=== PATIENT | female | born 1985 | race Caucasian/White ===

== ENCOUNTER 2018-06-05 10:33 | Inpatient (IN) | payer BC ==
[2018-06-05] MEDS ORDERED: Ondansetron 4 MG/2 ML SDV IVPUSH PRN (12:05)
[2018-06-05] MEDS ORDERED: Nalbuphine 20 MG/ML 1 ML Syringe IVPUSH PRN (12:05)
[2018-06-05] MEDS ORDERED: Sodium Chloride 0.9% 10 ML Syringe FLUSH PRN (12:05)
--- NOTE | 2018-06-05 12:05 | PCM.LDHP ---
L&D History of Present Illness - General Date of Service: 06/05/18 Admit Problem/Dx: Admission Diagnosis/Problem Admission Diagnosis/Problem Source of Information: Patient History Limitations: Reports: No Limitations - History of Present Illness Introduction:: Patient is a 32 y/o at 40 3/7 wks who presents in labor. Contractions stared a few hours ago. No LOF or VB. - Related Data Allergies/Adverse Reactions: Allergies Allergy/AdvReac Type Severity Reaction Status Date / Time No Known Allergies Allergy Verified 06/05/18 12:26 Home Medications: Home Meds Prenat Vit Comb.10/Iron/Fa/Dha [Vitafol-OB + DHA] 1 each PO DAILY 06/05/18 [ History] Past Medical History [employer] History: Reports: : 2 Para: 0 LMP (Approximate): Psychiatric History: Reports: Anxiety - Past Surgical History HEENT Surgical History: Reports: Oral Surgery ([place] tooth extraction) Female Surgical History: Reports: Other (See Below) (Breast lumpectomy) Social & Family History - Tobacco Use Smoking Status *Q: Never Smoker - Alcohol Use Alcohol Use History: No - Recreational Drug Use Recreational Drug Use: No Drug Use in Last 12 Months: No H&P Review of Systems - Review of Systems: Review Of Systems: See Below General: Reports: No Symptoms Pulmonary: Reports: No Symptoms Cardiovascular: Reports: No Symptoms Gastrointestinal: Reports: No Symptoms Genitourinary: Reports: No Symptoms Musculoskeletal: Reports: No Symptoms Psychiatric: Reports: No Symptoms Neurological: Reports: No Symptoms L&D Exam - Exam Exam: See Below - OB Specific Contraction Intensity: Moderate to Strong Movement: Active Heart Tones: Present Heart Tones per Min: 140 Heart Rate (FHR) Variability: Moderate (6-25 bmp) Presentation: Vertex - Patterson Score Patterson Score Cervix Position: Anterior Patterson Score Consistency: Soft Patterson Score Effacement: >80% Patterson Score Dilation: > 5 cm Patterson Score Infant's Station: -1 ,0 Patterson Score Total: 12 - Exam General: Alert, Oriented, Cooperative Lungs: Clear to Auscultation, Normal Respiratory Effort Cardiovascular: Regular Rate, Regular Rhythm GI/Abdominal Exam: Soft, Non-Tender Genitourinary: Normal external exam Extremities: Normal Inspection Skin: Warm, Dry, Intact - Patient Data Result Diagrams: 06/05/18 12:13 - Problem List (1) 40 weeks gestation of SNOMED Code(s): 12720873 ICD Code: Z3A.40 - 40 WEEKS GESTATION OF Status: Acute Current Visit: Yes (2) Normal labor SNOMED Code(s): 26667539 ICD Code: O80 - ENCOUNTER FOR FULL-TERM UNCOMPLICATED DELIVERY; Z37.9 - OUTCOME OF DELIVERY, UNSPECIFIED Status: Acute Current Visit: Yes Problem List Initiated/Reviewed/Updated: Yes Assessment/Plan Comment:: 32 y/o at 40 3/7 wks who presents in labor * Labs on admission * GBS negative, no need for antibiotics * Desires Epidural * Anticipate
[2018-06-05] MEDS ORDERED: Oxytocin/Lactated Ringers 10 UNIT/1,000 ML BAG IV SCH (12:15)
[2018-06-05] MEDS ORDERED: diphenhydrAMINE 50 MG/ML SDV IVPUSH PRN (12:18)
[2018-06-05] MEDS ORDERED: ePHEDrine 50 MG/ML SDV IVPUSH PRN (12:18)
[2018-06-05] MEDS ORDERED: fentaNYL 100 MCG/2 ML SDV EPIDUR PRN (12:18)
[2018-06-05] MEDS: Lactated Ringers 1,000 ML IV SCH ×3 (12:21→13:39)
[2018-06-05] MEDS ORDERED: Bupivacaine/fentaNYL/NS 100 ML Bag EPIDUR SCH (12:30)
--- NOTE | 2018-06-05 12:51 | PCM.PREANE ---
Preanesthetic Assessment - Procedure Proposed Procedure: maura - Anesthesia/Transfusion/Family Hx Anesthesia History: Prior Anesthesia Without Reaction Family History of Anesthesia Reaction: No Transfusion History: No Prior Transfusion(s) - Review of Systems General: No Symptoms, Other (undiagnosed hypoglycemia) Pulmonary: No Symptoms Cardiovascular: No Symptoms Gastrointestinal: No Symptoms Neurological: No Symptoms Other: Reports: None - Physical Assessment Pulse: 93 O2 Sat by Pulse Oximetry: 100 Respiratory Rate: 20 Blood Pressure: 118/58 Height: 5 ft 7 in Weight: 109.769 kg ASA Class: 2 Mental Status: Alert & Oriented x3 Airway Class: Mallampati = 1 Dentition: Reports: Normal Dentition Thyro-Mental Finger Breadths: 3 ROM/Head Extension: Full Lungs: Clear to Auscultation, Normal Respiratory Effort Cardiovascular: Regular Rate, Regular Rhythm - Lab Values: Laboratory Last Values WBC 12.52 K/mm3 (3.98-10.04) H 06/05/18 12:13 RBC 4.51 M/mm3 (3.98-5.22) 06/05/18 12:13 Hgb 12.8 gm/L (11.2-15.7) 06/05/18 12:13 Hct 38.2 % (34.1-44.9) 06/05/18 12:13 MCV 84.7 fl (79.4-94.8) 06/05/18 12:13 MCH 28.4 pg (25.6-32.2) 06/05/18 12:13 MCHC 33.5 g/dl (32.2-35.5) 06/05/18 12:13 RDW Std Deviation 43.9 fL (36.4-46.3) 06/05/18 12:13 Plt Count 157 K/mm3 (182-369) L 06/05/18 12:13 MPV 11.2 fl (9.4-12.3) 06/05/18 12:13 - Allergies Allergies/Adverse Reactions: Allergies Allergy/AdvReac Type Severity Reaction Status Date / Time No Known Allergies Allergy Verified 06/05/18 12:26 - Blood Blood Available: No - Acknowledgements Anesthesia Type Planned: Epidural Pt an Appropriate Candidate for the Planned Anesthesia: Yes Alternatives and Risks of Anesthesia Discussed w Pt/Guardian: Yes Pt/Guardian Understands and Agrees with Anesthesia Plan: Yes PreAnesthesia Questionnaire HEENT History: Reports: Impaired Vision Cardiovascular History: Reports: None Respiratory History: Reports: None Gastrointestinal History: Reports: None : 1 (40 weeks plus 3) Para: 0 Endocrine/Metabolic History: Reports: Other (See Below) (undiagnosed hypoglycemia) - Past Surgical History HEENT Surgical History: Reports: Tonsillectomy Female Surgical History: Reports: Breast Biopsy - SUBSTANCE USE Smoking Status *Q: Never Smoker Tobacco Use Within Last Twelve Months: No Second Hand Smoke Exposure: Yes Days Per Week of Alcohol Use: 0 Recreational Drug Use History: No - HOME MEDS Home Medications: Home Meds Prenat Vit Comb.10/Iron/Fa/Dha [Vitafol-OB + DHA] 1 each PO DAILY 06/05/18 [ History] - CURRENT (IN HOUSE) MEDS Current Meds: Current Medications Diphenhydramine HCl (Benadryl) 25 mg IVPUSH Q6H PRN PRN Reason: pruritis Ephedrine Sulfate (Ephedrine Sulfate) 5 mg IVPUSH ASDIRECTED PRN PRN Reason: Hypotension Fentanyl (Sublimaze) 100 mcg EPIDUR Q3H PRN PRN Reason: Pain Last Admin: 06/05/18 12:45 Dose: 100 mcg Fentanyl/Bupivacaine HCl (Fentanyl/Bupivacaine/Ns 2 Mcg-0.125% 100 Ml) 100 ml EPIDUR ASDIRECTED JT Last Admin: 06/05/18 12:45 Dose: 100 ml Lactated Ringer's (Ringers, Lactated) 1,000 mls @ 100 mls/hr IV ASDIRECTED JT Last Admin: 06/05/18 12:21 Dose: 100 mls/hr Oxytocin/Lactated Ringer's (Pitocin In Lr 10 Units/1,000 Ml) 10 unit in 1,000 mls @ 500 mls/hr IV .CONTINUOUS JT Nalbuphine HCl (Nubain) 10 mg IVPUSH Q2H PRN PRN Reason: pain Ondansetron HCl (Zofran) 4 mg IVPUSH Q4H PRN PRN Reason: Nausea/Vomiting Sodium Chloride (Saline Flush) 10 ml FLUSH ASDIRECTED PRN PRN Reason: Keep Vein Open
[2018-06-05] MEDS ORDERED: Bupivacaine 0.25% 10 ML SDV ONE (18:00)
--- NOTE | 2018-06-05 20:38 | PCM.PNPP ---
- General Info Date of Service: 06/05/18 - Patient Data Vital Signs - Most Recent: Last Vital Signs Temp 36.6 C 06/05/18 14:00 Pulse 83 06/05/18 14:30 Resp 16 06/05/18 14:00 BP 114/80 06/05/18 14:30 Pulse Ox 100 06/05/18 12:51 Weight - Most Recent: 109.769 kg I&O - Last 24 Hours: Intake & Output 06/05/18 06/05/18 06/05/18 06:59 14:59 22:59 Intake Total 1999 Balance 1999 Lab Results - Last 24 Hours: Laboratory Results - last 24 hr 06/05/18 06/05/18 06/05/18 Range/Units 12:13 12:13 12:13 WBC 12.52 H (3.98-10.04) K/mm3 RBC 4.51 (3.98-5.22) M/mm3 Hgb 12.8 (11.2-15.7) gm/L Hct 38.2 (34.1-44.9) % MCV 84.7 (79.4-94.8) fl MCH 28.4 (25.6-32.2) pg MCHC 33.5 (32.2-35.5) g/dl RDW Std Deviation 43.9 (36.4-46.3) fL Plt Count 157 L (182-369) K/mm3 MPV 11.2 (9.4-12.3) fl RPR Non-reactive (NONREACTIVE) Blood Type A POSITIVE Gel Antibody Screen Negative Med Orders - Current: Current Medications Diphenhydramine HCl (Benadryl) 25 mg IVPUSH Q6H PRN PRN Reason: pruritis Ephedrine Sulfate (Ephedrine Sulfate) 5 mg IVPUSH ASDIRECTED PRN PRN Reason: Hypotension Fentanyl (Sublimaze) 100 mcg EPIDUR Q3H PRN PRN Reason: Pain Last Admin: 06/05/18 12:45 Dose: 100 mcg Fentanyl/Bupivacaine HCl (Fentanyl/Bupivacaine/Ns 2 Mcg-0.125% 100 Ml) 100 ml EPIDUR ASDIRECTED JT Last Admin: 06/05/18 12:45 Dose: 100 ml Lactated Ringer's (Ringers, Lactated) 1,000 mls @ 100 mls/hr IV ASDIRECTED JT Last Admin: 10/03/18 13:39 Dose: 100 mls/hr Oxytocin/Lactated Ringer's (Pitocin In Lr 10 Units/1,000 Ml) 10 unit in 1,000 mls @ 500 mls/hr IV .CONTINUOUS JT Nalbuphine HCl (Nubain) 10 mg IVPUSH Q2H PRN PRN Reason: pain Ondansetron HCl (Zofran) 4 mg IVPUSH Q4H PRN PRN Reason: Nausea/Vomiting Last Admin: 06/05/18 18:02 Dose: 4 mg Sodium Chloride (Saline Flush) 10 ml FLUSH ASDIRECTED PRN PRN Reason: Keep Vein Open - Interaction Support Person: - Problem List & Annotations (1) 40 weeks gestation of SNOMED Code(s): 96957188 Code(s): Z3A.40 - 40 WEEKS GESTATION OF Status: Acute Current Visit: Yes (2) Normal labor SNOMED Code(s): 14426120 Code(s): O80 - ENCOUNTER FOR FULL-TERM UNCOMPLICATED DELIVERY; Z37.9 - OUTCOME OF DELIVERY, UNSPECIFIED Status: Acute Current Visit: Yes - My Orders Last 24 Hours: My Active Orders 06/05/18 12:05 Patient Status [ADT] Routine Activity as Tolerated [RC] PFP Communication Order [RC] ASDIRECTED Notify Provider [RC] PFP Notify Provider [RC] PRN Vital Signs [RC] PER UNIT ROUTINE Nalbuphine [Nubain] 10 mg IVPUSH Q2H PRN Ondansetron [Zofran] 4 mg IVPUSH Q4H PRN Sodium Chloride 0.9% [Saline Flush] 10 ml FLUSH ASDIRECTED PRN Electronic Heart Tones Ext w TOCO [WOMSER] Routine Electronic Heart Tones Internal [WOMSER] Per Unit Routine Peripheral IV Insertion Adult [OM.PC] Routine Resuscitation Status Routine 06/05/18 12:06 Heart Tones [RC] ASDIRECTED Peripheral IV Care [RC] . DIRECTED 06/05/18 12:15 Lactated Ringers [Ringers, Lactated] 1,000 ml IV ASDIRECTED Oxytocin/Lactated Ringers [Pitocin in LR 10 Units/1,000 ML] 10 unit in 1,000 ml IV .CONTINUOUS 06/05/18 14:48 Urinary Catheter Assessment [RC] ASDIRECTED 06/05/18 15:00 Wu Catheter Insertion [Insert Urinary Catheter] [OM.PC] Q24H 06/05/18 Lunch Regular Diet [DIET] - Plan Plan:: 32 y/o at 40 3/7 wks who presents in labor * Labs on admission * GBS negative, no need for antibiotics * Desires Epidural * Anticipate
--- NOTE | 2018-06-05 20:48 | PCM.DEL ---
L & D Note - General Info Date of Service: 06/05/18 - Delivery Note Labor: Spontaneous Delivery Outcome: Livebirth Delivery Method: Spontaneous Vaginal Delivery-Single Delivery Mode: Spontaneous Presentation: Right Occiput Anterior (CARON) Nuchal Cord: None Anesthesia Type: Epidural Amniotic Fluid Description: Clear Episiotomy Type: None Laceration: 2nd Degree, Perineal Suture type: Vicryl Suture size: 2-0 Placenta: Intact, Spontaneous Cord: 3 Vessels Estimated Blood Loss: 300 Resuscitation Needed: Yes : Bulb Syringe, Stimulated, Warmed, Ramona Used, Warmer Used Delivery Comments (Free Text/Narrative):: Patient found to be complete and began pushing. With maternal pushing effort head delivered from an CARON presentation. No nuchal cord present. With gentle downward traction the shoulders and body delivered. placed on maternal abdomen. Cord clamped and cut. Cord blood collected. Placenta allowed time to separate and expelled intact. Inspection of the perineum showed a 2nd degree laceration repaired with 2-0 vicryl in the typical fashion - General Info Date of Service: 06/05/18 - Patient Data Vitals - Most Recent: Last Vital Signs Temp 36.6 C 06/05/18 14:00 Pulse 83 06/05/18 14:30 Resp 16 06/05/18 14:00 BP 114/80 06/05/18 14:30 Pulse Ox 100 06/05/18 12:51 Weight - Most Recent: 109.769 kg I&O - Last 24 Hours: Intake & Output 06/05/18 06/05/18 06/05/18 06:59 14:59 22:59 Intake Total 1999 Balance 1999 Lab Results Last 24 Hours: Laboratory Results - last 24 hr 06/05/18 06/05/18 06/05/18 Range/Units 12:13 12:13 12:13 WBC 12.52 H (3.98-10.04) K/mm3 RBC 4.51 (3.98-5.22) M/mm3 Hgb 12.8 (11.2-15.7) gm/L Hct 38.2 (34.1-44.9) % MCV 84.7 (79.4-94.8) fl MCH 28.4 (25.6-32.2) pg MCHC 33.5 (32.2-35.5) g/dl RDW Std Deviation 43.9 (36.4-46.3) fL Plt Count 157 L (182-369) K/mm3 MPV 11.2 (9.4-12.3) fl RPR Non-reactive (NONREACTIVE) Blood Type A POSITIVE Gel Antibody Screen Negative Med Orders - Current: Current Medications Diphenhydramine HCl (Benadryl) 25 mg IVPUSH Q6H PRN PRN Reason: pruritis Ephedrine Sulfate (Ephedrine Sulfate) 5 mg IVPUSH ASDIRECTED PRN PRN Reason: Hypotension Fentanyl (Sublimaze) 100 mcg EPIDUR Q3H PRN PRN Reason: Pain Last Admin: 06/05/18 12:45 Dose: 100 mcg Fentanyl/Bupivacaine HCl (Fentanyl/Bupivacaine/Ns 2 Mcg-0.125% 100 Ml) 100 ml EPIDUR ASDIRECTED JT Last Admin: 06/05/18 12:45 Dose: 100 ml Lactated Ringer's (Ringers, Lactated) 1,000 mls @ 100 mls/hr IV ASDIRECTED JT Last Admin: 06/05/18 13:39 Dose: 100 mls/hr Oxytocin/Lactated Ringer's (Pitocin In Lr 10 Units/1,000 Ml) 10 unit in 1,000 mls @ 500 mls/hr IV .CONTINUOUS JT Nalbuphine HCl (Nubain) 10 mg IVPUSH Q2H PRN PRN Reason: pain Ondansetron HCl (Zofran) 4 mg IVPUSH Q4H PRN PRN Reason: Nausea/Vomiting Last Admin: 06/05/18 18:02 Dose: 4 mg Sodium Chloride (Saline Flush) 10 ml FLUSH ASDIRECTED PRN PRN Reason: Keep Vein Open - Problem List & Annotations (1) 40 weeks gestation of SNOMED Code(s): 98897065 Code(s): Z3A.40 - 40 WEEKS GESTATION OF Status: Acute Current Visit: Yes (2) Normal labor SNOMED Code(s): 14671939 Code(s): O80 - ENCOUNTER FOR FULL-TERM UNCOMPLICATED DELIVERY; Z37.9 - OUTCOME OF DELIVERY, UNSPECIFIED Status: Acute Current Visit: Yes (3) Vaginal delivery SNOMED Code(s): 108078722 Code(s): O80 - ENCOUNTER FOR FULL-TERM UNCOMPLICATED DELIVERY Status: Acute Current Visit: Yes - Problem List Review Problem List Initiated/Reviewed/Updated: Yes - My Orders Last 24 Hours: My Active Orders 06/05/18 12:05 Patient Status [ADT] Routine Activity as Tolerated [RC] PFP Communication Order [RC] ASDIRECTED Notify Provider [RC] PFP Notify Provider [RC] PRN Vital Signs [RC] PER UNIT ROUTINE Nalbuphine [Nubain] 10 mg IVPUSH Q2H PRN Ondansetron [Zofran] 4 mg IVPUSH Q4H PRN Sodium Chloride 0.9% [Saline Flush] 10 ml FLUSH ASDIRECTED PRN Electronic Heart Tones Ext w TOCO [WOMSER] Routine Electronic Heart Tones Internal [WOMSER] Per Unit Routine Peripheral IV Insertion Adult [OM.PC] Routine Resuscitation Status Routine 06/05/18 12:06 Heart Tones [RC] ASDIRECTED Peripheral IV Care [RC] . DIRECTED 06/05/18 12:15 Lactated Ringers [Ringers, Lactated] 1,000 ml IV ASDIRECTED Oxytocin/Lactated Ringers [Pitocin in LR 10 Units/1,000 ML] 10 unit in 1,000 ml IV .CONTINUOUS 06/05/18 14:48 Urinary Catheter Assessment [RC] ASDIRECTED 06/05/18 15:00 Wu Catheter Insertion [Insert Urinary Catheter] [OM.PC] Q24H 06/05/18 20:46 Patient Status Manage Transfer [TRANSFER] Routine 06/05/18 Lunch Regular Diet [DIET] - Assessment Assessment:: 32 y/o PPD#0 from - Plan Plan:: * Routine cares * Encourage breast feeding * Discharge home in 2 days
[2018-06-05] MEDS ORDERED: Witch Hazel Medicated Pads 100/Jar TOP PRN (20:49)
[2018-06-05] MEDS ORDERED: Acetaminophen 325 MG Tab PO PRN (20:49)
[2018-06-05] MEDS ORDERED: Benzocaine/Menthol 20%-0.5% Spray 56 GM Canister TOP PRN (20:49)
[2018-06-05] MEDS ORDERED: Docusate Sodium 100 MG Cap PO PRN (20:49)
[2018-06-05] MEDS ORDERED: Lanolin 100% Cream 7 GM Tube TOP PRN (20:49)
[2018-06-05] MEDS: Ibuprofen 600 MG Tab PO PRN (21:33)
[2018-06-06] MEDS: Ibuprofen 600 MG Tab PO PRN ×2 (04:20→18:52)
--- NOTE | 2018-06-06 06:28 | PCM.PNPP ---
- General Info Date of Service: 06/06/18 Functional Status: Reports: Pain Controlled, Tolerating Diet, Ambulating, Urinating - Review of Systems General: Reports: No Symptoms Pulmonary: Reports: No Symptoms Cardiovascular: Reports: No Symptoms Gastrointestinal: Reports: No Symptoms Genitourinary: Reports: No Symptoms Musculoskeletal: Reports: No Symptoms Neurological: Reports: No Symptoms - Patient Data Vital Signs - Most Recent: Last Vital Signs Temp 36.6 C 06/06/18 03:00 Pulse 73 06/06/18 03:00 Resp 18 06/06/18 03:00 BP 105/60 06/06/18 03:00 Pulse Ox 99 06/06/18 03:00 Weight - Most Recent: 109.769 kg I&O - Last 24 Hours: Intake & Output 06/05/18 06/05/18 06/06/18 14:59 22:59 06:59 Intake Total 6000 Balance 6000 Lab Results - Last 24 Hours: Laboratory Results - last 24 hr 06/05/18 06/05/18 06/05/18 Range/Units 12:13 12:13 12:13 WBC 12.52 H (3.98-10.04) K/mm3 RBC 4.51 (3.98-5.22) M/mm3 Hgb 12.8 (11.2-15.7) gm/L Hct 38.2 (34.1-44.9) % MCV 84.7 (79.4-94.8) fl MCH 28.4 (25.6-32.2) pg MCHC 33.5 (32.2-35.5) g/dl RDW Std Deviation 43.9 (36.4-46.3) fL Plt Count 157 L (182-369) K/mm3 MPV 11.2 (9.4-12.3) fl RPR Non-reactive (NONREACTIVE) Blood Type A POSITIVE Gel Antibody Screen Negative Med Orders - Current: Current Medications Acetaminophen (Tylenol) 650 mg PO Q4H PRN PRN Reason: mild pain or fever Benzocaine/Menthol (Dermoplast Pain Relief [place]) 0 gm TOP ASDIRECTED PRN PRN Reason: Perineal Comfort Measure Last Admin: 06/05/18 21:35 Dose: 1 canister Docusate Sodium (Colace) 100 mg PO BID PRN PRN Reason: Constipation Last Admin: 06/06/18 04:27 Dose: 100 mg Emollient Ointment (Lansinoh Hpa) 0 gm TOP ASDIRECTED PRN PRN Reason: Sore Nipples Ibuprofen (Motrin) 600 mg PO Q6H PRN PRN Reason: Mild pain or fever Last Admin: 06/06/18 04:20 Dose: 600 mg Witch Pam (Tucks) 1 pad TOP ASDIRECTED PRN PRN Reason: Hemorrhoid pain Last Admin: 06/05/18 21:35 Dose: 1 tub Discontinued Medications Diphenhydramine HCl (Benadryl) 25 mg IVPUSH Q6H PRN PRN Reason: pruritis Ephedrine Sulfate (Ephedrine Sulfate) 5 mg IVPUSH ASDIRECTED PRN PRN Reason: Hypotension Fentanyl (Sublimaze) 100 mcg EPIDUR Q3H PRN PRN Reason: Pain Last Admin: 06/05/18 12:45 Dose: 100 mcg Fentanyl/Bupivacaine HCl (Fentanyl/Bupivacaine/Ns 2 Mcg-0.125% 100 Ml) 100 ml EPIDUR ASDIRECTED JT Last Admin: 06/05/18 12:45 Dose: 100 ml Lactated Ringer's (Ringers, Lactated) 1,000 mls @ 100 mls/hr IV ASDIRECTED JT Last Admin: 06/05/18 13:39 Dose: 100 mls/hr Oxytocin/Lactated Ringer's (Pitocin In Lr 10 Units/1,000 Ml) 10 unit in 1,000 mls @ 500 mls/hr IV .CONTINUOUS JT Last Admin: 06/05/18 21:32 Dose: 500 mls/hr Nalbuphine HCl (Nubain) 10 mg IVPUSH Q2H PRN PRN Reason: pain Ondansetron HCl (Zofran) 4 mg IVPUSH Q4H PRN PRN Reason: Nausea/Vomiting Last Admin: 06/05/18 18:02 Dose: 4 mg Sodium Chloride (Saline Flush) 10 ml FLUSH ASDIRECTED PRN PRN Reason: Keep Vein Open - Interaction Infant Disposition, : [place] in Room with Family Infant Interaction: Holding Infant Feeding: Attempted ; Nursed Fair/Poor, Difficulty with Latch -on Support Person: - Recovery Exam Fundal Tone: Firm Fundal Level: 1 Fingerbreadths Below Umbilicus Fundal Placement: Midline Lochia Amount: Small, Moderate Perineum Description: Edematous Episiotomy/Laceration: Approximated Bladder Status: Voiding Urinary Elimination: Voided - Exam General: Alert, Oriented, Cooperative GI/Abdominal Exam: Soft, Non-Tender Extremities: Normal Inspection Skin: Warm, Dry, Intact - Problem List & Annotations (1) 40 weeks gestation of SNOMED Code(s): 16904674 Code(s): Z3A.40 - 40 WEEKS GESTATION OF Status: Acute Current Visit: Yes (2) Normal labor SNOMED Code(s): 28437909 Code(s): O80 - ENCOUNTER FOR FULL-TERM UNCOMPLICATED DELIVERY; Z37.9 - OUTCOME OF DELIVERY, UNSPECIFIED Status: Acute Current Visit: Yes (3) Vaginal delivery SNOMED Code(s): 913598503 Code(s): O80 - ENCOUNTER FOR FULL-TERM UNCOMPLICATED DELIVERY Status: Acute Current Visit: Yes - Problem List Review Problem List Initiated/Reviewed/Updated: Yes - My Orders Last 24 Hours: My Active Orders 06/05/18 12:05 Resuscitation Status Routine 06/05/18 12:06 Peripheral IV Care [RC] . DIRECTED 06/05/18 20:49 Activity as Tolerated [RC] PER UNIT ROUTINE Vital Signs [RC] 21,03,15,09 Acetaminophen [Tylenol] 650 mg PO Q4H PRN Benzocaine/Menthol [Dermoplast Pain Relief [place]] See Dose Instructions TOP ASDIRECTED PRN Docusate Sodium [Colace] 100 mg PO BID PRN Ibuprofen [Motrin] 600 mg PO Q6H PRN Lanolin [Lansinoh HPA] See Dose Instructions TOP ASDIRECTED PRN Witch Pam [Tucks] 1 pad TOP ASDIRECTED PRN Assess Lochia [WOMSER] Per Unit Routine Assess Uterine Involution [WOMSER] Per Unit Routine Breast Pump [WOMSER] Per Unit Routine Ice Therapy [OM.PC] Per Unit Routine Perineal Care [OM.PC] Per Unit Routine Peripheral IV Discontinue [OM.PC] Routine Sitz Bath [OM.PC] Per Unit Routine 06/05/18 21:00 Heat Therapy [OM.PC] PRN 06/05/18 Dinner Regular Diet [DIET] 06/06/18 21:00 Heat Therapy [OM.PC] PRN - Assessment Assessment:: 32 y/o PPD#1 from - Plan Plan:: * Routine cares * Encourage breast feeding * Discharge home tomorrow
[2018-06-07] MEDS: Ibuprofen 600 MG Tab PO PRN ×2 (02:34→11:21)
--- NOTE | 2018-06-07 06:36 | PCM.PNPP ---
- General Info Date of Service: 06/07/18 Functional Status: Reports: Pain Controlled, Tolerating Diet, Ambulating, Urinating - Review of Systems General: Reports: No Symptoms Cardiovascular: Reports: No Symptoms Gastrointestinal: Reports: No Symptoms Genitourinary: Reports: No Symptoms Musculoskeletal: Reports: No Symptoms Neurological: Reports: No Symptoms - Patient Data Vital Signs - Most Recent: Last Vital Signs Temp 36.9 C 06/07/18 03:17 Pulse 61 06/07/18 03:17 Resp 16 06/07/18 03:17 BP 122/74 06/07/18 03:17 Pulse Ox 97 06/07/18 03:17 Weight - Most Recent: 109.769 kg I&O - Last 24 Hours: Intake & Output 06/06/18 06/06/18 06/07/18 14:59 22:59 06:59 Intake Total 120 Balance 120 Med Orders - Current: Current Medications Acetaminophen (Tylenol) 650 mg PO Q4H PRN PRN Reason: mild pain or fever Benzocaine/Menthol (Dermoplast Pain Relief [place]) 0 gm TOP ASDIRECTED PRN PRN Reason: Perineal Comfort Measure Last Admin: 06/05/18 21:35 Dose: 1 canister Docusate Sodium (Colace) 100 mg PO BID PRN PRN Reason: Constipation Last Admin: 06/06/18 04:27 Dose: 100 mg Emollient Ointment (Lansinoh Hpa) 0 gm TOP ASDIRECTED PRN PRN Reason: Sore Nipples Ibuprofen (Motrin) 600 mg PO Q6H PRN PRN Reason: Mild pain or fever Last Admin: 06/07/18 02:34 Dose: 600 mg Witch Pam (Tucks) 1 pad TOP ASDIRECTED PRN PRN Reason: Hemorrhoid pain Last Admin: 06/05/18 21:35 Dose: 1 tub Discontinued Medications Bupivacaine HCl (Sensorcaine-Mpf 0.25%) 10 ml .ROUTE .STK-MED ONE Stop: 06/05/18 18:01 Diphenhydramine HCl (Benadryl) 25 mg IVPUSH Q6H PRN PRN Reason: pruritis Ephedrine Sulfate (Ephedrine Sulfate) 5 mg IVPUSH ASDIRECTED PRN PRN Reason: Hypotension Fentanyl (Sublimaze) 100 mcg EPIDUR Q3H PRN PRN Reason: Pain Last Admin: 06/05/18 12:45 Dose: 100 mcg Fentanyl/Bupivacaine HCl (Fentanyl/Bupivacaine/Ns 2 Mcg-0.125% 100 Ml) 100 ml EPIDUR ASDIRECTED JT Last Admin: 06/05/18 12:45 Dose: 100 ml Lactated Ringer's (Ringers, Lactated) 1,000 mls @ 100 mls/hr IV ASDIRECTED JT Last Admin: 06/05/18 13:39 Dose: 100 mls/hr Oxytocin/Lactated Ringer's (Pitocin In Lr 10 Units/1,000 Ml) 10 unit in 1,000 mls @ 500 mls/hr IV .CONTINUOUS JT Last Admin: 06/05/18 21:32 Dose: 500 mls/hr Nalbuphine HCl (Nubain) 10 mg IVPUSH Q2H PRN PRN Reason: pain Ondansetron HCl (Zofran) 4 mg IVPUSH Q4H PRN PRN Reason: Nausea/Vomiting Last Admin: 06/05/18 18:02 Dose: 4 mg Sodium Chloride (Saline Flush) 10 ml FLUSH ASDIRECTED PRN PRN Reason: Keep Vein Open - Infant Interaction Disposition, : in Room with Family Interaction: Holding Feeding: Attempted ; Nursed Fair/Poor, Difficulty with Latch -on Support Person: - Recovery Exam Fundal Tone: Firm Fundal Level: 1 Fingerbreadths Below Umbilicus Fundal Placement: Midline Lochia Amount: Small Lochia Color: Rubra/Red Perineum Description: Other (see below) Other Perinuem Description: 2nd deg lac with repair leon care per self tucks dermaplast in use Episiotomy/Laceration: Approximated Bladder Status: Voiding Urinary Elimination: Voided - Exam General: Alert, Oriented, Cooperative GI/Abdominal Exam: Soft, Non-Tender Extremities: Normal Inspection Skin: Warm, Dry, Intact - Problem List & Annotations (1) 40 weeks gestation of SNOMED Code(s): 36932064 Code(s): Z3A.40 - 40 WEEKS GESTATION OF Status: Acute Current Visit: Yes (2) Normal labor SNOMED Code(s): 34690854 Code(s): O80 - ENCOUNTER FOR FULL-TERM UNCOMPLICATED DELIVERY; Z37.9 - OUTCOME OF DELIVERY, UNSPECIFIED Status: Acute Current Visit: Yes (3) Vaginal delivery SNOMED Code(s): 250999557 Code(s): O80 - ENCOUNTER FOR FULL-TERM UNCOMPLICATED DELIVERY Status: Acute Current Visit: Yes - Problem List Review Problem List Initiated/Reviewed/Updated: Yes - My Orders Last 24 Hours: My Active Orders 06/06/18 21:00 Heat Therapy [OM.PC] PRN 06/07/18 06:36 Ready for Discharge [RC] PER UNIT ROUTINE - Assessment Assessment:: 32 y/o PPD#2 from - Plan Plan:: * Routine cares * Encourage breast feeding * Discharge home today
--- NOTE | 2018-06-07 06:36 | PCM.DCSUM1 ---
Discharge Summary - Discharge Data Discharge Date: 06/07/18 Discharge Disposition: Home, Self-Care 01 Condition: Good - Discharge Diagnosis/Problem(s) (1) 40 weeks gestation of SNOMED Code(s): 61543150 ICD Code: Z3A.40 - 40 WEEKS GESTATION OF Status: Acute Current Visit: Yes (2) Normal labor SNOMED Code(s): 55398724 ICD Code: O80 - ENCOUNTER FOR FULL-TERM UNCOMPLICATED DELIVERY; Z37.9 - OUTCOME OF DELIVERY, UNSPECIFIED Status: Acute Current Visit: Yes (3) Vaginal delivery SNOMED Code(s): 988704212 ICD Code: O80 - ENCOUNTER FOR FULL-TERM UNCOMPLICATED DELIVERY Status: Acute Current Visit: Yes - Patient Summary/Data Complications: None Consults: None Recommended Follow-up Testing/Procedures: Follow up in 3-6 weeks for check Hospital Course: 32 y/o at 40 3/7 wks who presented in labor. She progressed well and underwent an uncomplicated . See delivery note. she did well and was discharged home on PPD#2. - Patient Instructions Diet: Regular Diet as Tolerated Activity: As Tolerated Activity, Other: Pelvic Rest Driving: May Drive Today Showering/Bathing: May Shower Showering/Bathing, Other: May Bathe Notify Provider of: Fever, Increased Pain, Swelling and Redness, Drainage, Nausea and/or Vomiting - Discharge Plan *PRESCRIPTION DRUG MONITORING PROGRAM REVIEWED*: Not Applicable *COPY OF PRESCRIPTION DRUG MONITORING REPORT IN PATIENT CANDACE: Not Applicable Home Medications: Home Meds Prenat Vit Comb.10/Iron/Fa/Dha [Vitafol-OB + DHA] 1 each PO DAILY 06/05/18 [ History] Docusate Sodium [Colace] 100 mg PO BID PRN cap 06/07/18 [Rx] Ibuprofen [Motrin] 600 mg PO Q6H PRN tablet 06/07/18 [Rx] Patient Handouts: Home Care Instructions for Mom, Tips for a Good Latch Referrals: Farzaneh Le MD [Primary Care Provider] - (3-6 weeks for check) - Discharge Summary/Plan Comment DC Time >30 min.: No - Patient Data Vitals - Most Recent: Last Vital Signs Temp 36.9 C 06/07/18 03:17 Pulse 61 06/07/18 03:17 Resp 16 06/07/18 03:17 BP 122/74 06/07/18 03:17 Pulse Ox 97 06/07/18 03:17 Weight - Most Recent: 109.769 kg I&O - Last 24 hours: Intake & Output 06/06/18 06/06/18 06/07/18 14:59 22:59 06:59 Intake Total 120 Balance 120 Med Orders - Current: Current Medications Acetaminophen (Tylenol) 650 mg PO Q4H PRN PRN Reason: mild pain or fever Benzocaine/Menthol (Dermoplast Pain Relief [place]) 0 gm TOP ASDIRECTED PRN PRN Reason: Perineal Comfort Measure Last Admin: 06/05/18 21:35 Dose: 1 canister Docusate Sodium (Colace) 100 mg PO BID PRN PRN Reason: Constipation Last Admin: 06/06/18 04:27 Dose: 100 mg Emollient Ointment (Lansinoh Hpa) 0 gm TOP ASDIRECTED PRN PRN Reason: Sore Nipples Ibuprofen (Motrin) 600 mg PO Q6H PRN PRN Reason: Mild pain or fever Last Admin: 06/07/18 02:34 Dose: 600 mg Witch Pam (Tucks) 1 pad TOP ASDIRECTED PRN PRN Reason: Hemorrhoid pain Last Admin: 06/05/18 21:35 Dose: 1 tub Discontinued Medications Bupivacaine HCl (Sensorcaine-Mpf 0.25%) 10 ml .ROUTE .STK-MED ONE Stop: 06/05/18 18:01 Diphenhydramine HCl (Benadryl) 25 mg IVPUSH Q6H PRN PRN Reason: pruritis Ephedrine Sulfate (Ephedrine Sulfate) 5 mg IVPUSH ASDIRECTED PRN PRN Reason: Hypotension Fentanyl (Sublimaze) 100 mcg EPIDUR Q3H PRN PRN Reason: Pain Last Admin: 06/05/18 12:45 Dose: 100 mcg Fentanyl/Bupivacaine HCl (Fentanyl/Bupivacaine/Ns 2 Mcg-0.125% 100 Ml) 100 ml EPIDUR ASDIRECTED [facility] Last Admin: 06/05/18 12:45 Dose: 100 ml Lactated Ringer's (Ringers, Lactated) 1,000 mls @ 100 mls/hr IV ASDIRECTED JT Last Admin: 06/05/18 13:39 Dose: 100 mls/hr Oxytocin/Lactated Ringer's (Pitocin In Lr 10 Units/1,000 Ml) 10 unit in 1,000 mls @ 500 mls/hr IV .CONTINUOUS JT Last Admin: 06/05/18 21:32 Dose: 500 mls/hr Nalbuphine HCl (Nubain) 10 mg IVPUSH Q2H PRN PRN Reason: pain Ondansetron HCl (Zofran) 4 mg IVPUSH Q4H PRN PRN Reason: Nausea/Vomiting Last Admin: 06/05/18 18:02 Dose: 4 mg Sodium Chloride (Saline Flush) 10 ml FLUSH ASDIRECTED PRN PRN Reason: Keep Vein Open
== END 2018-06-07 12:05 | disposition home or self-care (01) | DRG 560 ==
LOC: JD.OBCHECK 10:33 → JD.OB 10:37 → JD.OBCHECK 12:10 → JD.OB 12:11 → OBSVTOIN 19:27 → JD.OB 19:27
PROVIDERS: ADMIT Obstetrics & Gynecology; ATTEND Obstetrics & Gynecology
PROC: 6A550ZT Pheresis of Cord Blood Stem Cells, Single (ICD-10-PCS; principal; 2018-06-05)
PROC: 0KQM0ZZ Repair Perineum Muscle, Open Approach (ICD-10-PCS; principal; 2018-06-05)
PROC: 10E0XZZ Delivery of Products of Conception, External Approach (ICD-10-PCS; principal; 2018-06-05)
PROC: 3E0R3BZ Introduction of Anesthetic Agent into Spinal Canal, Percutaneous Approach (ICD-10-PCS; 2018-06-05)
PROC: 00HU33Z Insertion of Infusion Device into Spinal Canal, Percutaneous Approach (ICD-10-PCS; 2018-06-05)
DX: O48.0 Post-term pregnancy (principal); O99.344 Other mental disorders complicating childbirth; Z3A.40 40 weeks gestation of pregnancy; F41.9 Anxiety disorder, unspecified; O70.1 Second degree perineal laceration during delivery; Z37.0 Single live birth
CPT/HCPCS: 36415; 51701; 51702; 59025; 59300; 59409; 85027; 86592; 86850; 86900; 86901; A9270-GY; J2405; J2590; J3010; J3490; J7120

== ENCOUNTER 2020-07-12 14:47 | Inpatient (IN) | payer BC ==
[2020-07-12] MEDS ORDERED: Lactated Ringers 1,000 ML ONE (15:04)
[2020-07-12] MEDS ORDERED: Ondansetron 4 MG/2 ML SDV IVPUSH PRN (15:07)
[2020-07-12] MEDS ORDERED: Nalbuphine 10 MG/ML Syringe IVPUSH PRN (15:07)
[2020-07-12] MEDS ORDERED: Sodium Chloride 0.9% 10 ML Syringe FLUSH PRN (15:07)
[2020-07-12] MEDS ORDERED: Lactated Ringers 1,000 ML IV SCH (15:15)
[2020-07-12] MEDS ORDERED: Oxytocin/Lactated Ringers 10 UNIT/1,000 ML BAG IV SCH (15:15)
[2020-07-12] MEDS ORDERED: Penicillin G Potassium 5 MILLUNITS in Sodium Chloride 0.9% 100 ML IV SCH (15:30)
[2020-07-12] MEDS ORDERED: fentaNYL 100 MCG/2 ML SDV EPIDUR PRN (15:53)
[2020-07-12] MEDS ORDERED: diphenhydrAMINE 50 MG/ML SDV IVPUSH PRN (15:53)
[2020-07-12] MEDS ORDERED: Bupivacaine/fentaNYL/NS 100 ML Bag EPIDUR PRN (15:53)
[2020-07-12] MEDS ORDERED: ePHEDrine 50 MG/ML SDV IVPUSH PRN (15:53)
--- NOTE | 2020-07-12 16:11 | PCM.LDHP ---
L&D History of Present Illness - General Date of Service: 07/12/20 Admit Problem/Dx: Patient Status Order with Admit Dx/Problem 07/12/20 14:56 Patient Status [ADT] Routine 07/12/20 15:07 Patient Status [ADT] Routine Admission Diagnosis/Problem Admission Diagnosis/Problem Source of Information: Patient History Limitations: Reports: No Limitations - History of Present Illness Introduction:: Patient is a 34 y/o at 39 2/7 wks who presents in labor. Was seen in clinic earlier today and found to be 3 cm. Did request membrane sweeping which was done. Presented to L&D very uncomfortable and about 4 cm in dilation - Related Data Allergies/Adverse Reactions: Allergies Allergy/AdvReac Type Severity Reaction Status Date / Time No Known Allergies Allergy Verified 06/05/18 12:26 Home Medications: Home Meds Vit 10/Iron/Folic/Dha [Vitafol-OB + DHA] 1 each PO DAILY 06/05/18 [History] Citalopram [Citalopram HBr] 20 mg PO DAILY 07/12/20 [History] Past Medical History HEENT History: Reports: Impaired Vision [employer] History: Reports: , Spontaneous : 3 Para: 1 LMP (Approximate): Psychiatric History: Reports: Anxiety - Past Surgical History HEENT Surgical History: Reports: Oral Surgery ([place] tooth extraction) Female Surgical History: Reports: Other (See Below) (Breast lumpectomy) Social & Family History - Family History Family Medical History: Noncontributory - Tobacco Use Tobacco Use Status *Q: Never Tobacco User - Caffeine Use Caffeine Use: Reports: None - Alcohol Use Alcohol Use History: No - Recreational Drug Use Recreational Drug Use: No H&P Review of Systems - Review of Systems: Review Of Systems: See Below General: Reports: No Symptoms Pulmonary: Reports: No Symptoms Cardiovascular: Reports: No Symptoms Gastrointestinal: Reports: No Symptoms Genitourinary: Reports: No Symptoms Musculoskeletal: Reports: No Symptoms Psychiatric: Reports: No Symptoms Neurological: Reports: No Symptoms L&D Exam - Exam Exam: See Below - Vital Signs Weight: 106.141 kg - OB Specific Contraction Intensity: Moderate to Strong Movement: Active Heart Tones: Present Heart Tones per Min: 135 Heart Rate (FHR) Variability: Moderate (6-25 bmp) Presentation: Vertex - Patterson Score Patterson Score Cervix Position: Anterior Patterson Score Consistency: Soft Patterson Score Effacement: >80% Patterson Score Dilation: 3-4 cm Patterson Score 's Station: -2 Patterson Score Total: 10 - Exam General: Alert, Oriented, Cooperative Lungs: Clear to Auscultation, Normal Respiratory Effort Cardiovascular: Regular Rate, Regular Rhythm GI/Abdominal Exam: Soft, Non-Tender Genitourinary: Normal external exam Extremities: Normal Inspection Skin: Warm, Dry, Intact - Patient Data Lab Results Last 24 hrs: Laboratory Results - last 24 hr 07/12/20 Range/Units 15:28 WBC 12.03 H (3.98-10.04) K/mm3 RBC 4.43 (3.98-5.22) M/mm3 Hgb 12.4 (11.2-15.7) gm/dl Hct 38.8 (34.1-44.9) % MCV 87.6 (79.4-94.8) fl MCH 28.0 (25.6-32.2) pg MCHC 32.0 L (32.2-35.5) g/dl RDW Std Deviation 45.5 (36.4-46.3) fL Plt Count 183 (182-369) K/mm3 MPV 10.3 (9.4-12.3) fl Neut % (Auto) 72.4 H (34.0-71.1) % Lymph % (Auto) 20.4 (19.3-51.7) % [place] % (Auto) 6.5 (4.7-12.5) % Eos % (Auto) 0.4 L (0.7-5.8) Baso % (Auto) 0.1 (0.1-1.2) % Neut # (Auto) 8.70 H (1.56-6.13) K/mm3 Lymph # (Auto) 2.46 (1.18-3.74) K/mm3 [place] # (Auto) 0.78 H (0.24-0.36) K/mm3 Eos # (Auto) 0.05 (0.04-0.36) K/mm3 Baso # (Auto) 0.01 (0.01-0.08) K/mm3 Result Diagrams: 07/12/20 15:28 - Problem List (1) 39 weeks gestation of SNOMED Code(s): 14675634 ICD Code: Z3A.39 - 39 WEEKS GESTATION OF Status: Acute Current Visit: Yes (2) GBS (group B Streptococcus carrier), +RV culture, currently SNOMED Code(s): 0377056621720, 595045389, 5664622127492 ICD Code: O99.820 - STREPTOCOCCUS B CARRIER STATE COMPLICATING Status: Acute Current Visit: Yes (3) Normal labor SNOMED Code(s): 84584413 ICD Code: O80 - ENCOUNTER FOR FULL-TERM UNCOMPLICATED DELIVERY; Z37.9 - OUTCO ME OF DELIVERY, UNSPECIFIED Status: Acute Current Visit: No Problem List Initiated/Reviewed/Updated: Yes Orders Last 24hrs: Active Orders 24 hr Category Date Time Status Patient Status [ADT] Routine ADT 07/12/20 15:07 Active Activity as Tolerated [RC] PFP Care 07/12/20 15:07 Active Communication Order [RC] ASDIRECTED Care 07/12/20 15:07 Active Heart Tones [RC] ASDIRECTED Care 07/12/20 15:08 Active Non Stress Test [RC] PER UNIT ROUTINE Care 07/12/20 14:56 Active Notify Provider [RC] ASDIRECTED Care 07/12/20 15:53 Active Notify Provider [RC] PFP Care 07/12/20 15:07 Active Notify Provider [RC] PRN Care 07/12/20 15:07 Active Peripheral IV Care [RC] . DIRECTED Care 07/12/20 15:08 Active Pump Management, Intrathecal [RC] ASDIRECTED Care 07/12/20 15:08 Active Urinary Catheter Assessment [RC] ASDIRECTED Care 07/12/20 15:07 Active Vaginal Exam [RC] PRN Care 07/12/20 14:57 Active Vital Signs [RC] PER UNIT ROUTINE Care 07/12/20 14:56 Active Regular Diet [DIET] Diet 07/12/20 Dinner Active CORONAVIRUS COVID-19 HELDER [MOLEC] Stat Lab 07/12/20 15:20 Received RAPID PLASMA REAGIN,RPR [CHEM] Routine Lab 07/12/20 15:28 Received TYPE AND SCREEN [BBK] Stat Lab 07/12/20 15:28 Received Bupivacaine/fentaNYL/NS [fentaNYL/Bupivacaine/NS 2 MCG- Med 07/12/20 15:53 Active 0.125% 100 ML] 100 ml EPIDUR ASDIRECTED PRN Lactated Ringers [Ringers, Lactated] 1,000 ml Med 07/12/20 15:15 Active IV ASDIRECTED Nalbuphine [Nubain] Med 07/12/20 15:07 Active 10 mg IVPUSH Q2H PRN Ondansetron [Zofran] Med 07/12/20 15:07 Active 4 mg IVPUSH Q4H PRN Oxytocin/Lactated Ringers [Pitocin in LR 10 Units/1,000 Med 07/12/20 15:15 Active ML] 10 unit in 1,000 ml IV .CONTINUOUS Penicillin G Potassium [Pfizerpen] 2.5 millunits Med 07/12/20 19:30 Active Sodium Chloride 0.9% [Normal Saline] 100 ml IV Q4H Penicillin G Potassium [Pfizerpen] 5 millunits Med 07/12/20 15:30 Active Sodium Chloride 0.9% [Normal Saline] 100 ml IV ONETIME Sodium Chloride 0.9% [Saline Flush] Med 07/12/20 15:07 Active 10 ml FLUSH ASDIRECTED PRN diphenhydrAMINE [Benadryl] Med 07/12/20 15:53 Active 25 mg IVPUSH Q6H PRN ePHEDrine [ePHEDrine sulfate] Med 07/12/20 15:53 Active 5 mg IVPUSH ASDIRECTED PRN fentaNYL [Sublimaze] Med 07/12/20 15:53 Active 100 mcg EPIDUR Q3H PRN Electronic Heart Tones Ext w TOCO [WOMSER] Oth 07/12/20 15:07 Ordered Routine Electronic Heart Tones Internal [WOMSER] Per Unit Oth 07/12/20 15:07 Ordered Routine Peripheral IV Insertion Adult [OM.PC] Routine Oth 07/12/20 15:07 Ordered Resuscitation Status Routine Resus Stat 07/12/20 14:56 Ordered Medication Orders Diphenhydramine HCl (Benadryl) 25 mg IVPUSH Q6H PRN PRN Reason: pruritis Ephedrine Sulfate (Ephedrine Sulfate) 5 mg IVPUSH ASDIRECTED PRN PRN Reason: Hypotension Fentanyl (Sublimaze) 100 mcg EPIDUR Q3H PRN PRN Reason: Pain Fentanyl/Bupivacaine HCl (Fentanyl/Bupivacaine/Ns 2 Mcg-0.125% 100 Ml) 100 ml EPIDUR ASDIRECTED PRN PRN Reason: Pain Lactated Ringer's (Ringers, Lactated) 1,000 mls @ 100 mls/hr IV ASDIRECTED JT Last Admin: 07/12/20 15:39 Dose: 999 mls/hr Documented by: LARISSA Penicillin G Potassium 5 (millunits/ Sodium Chloride) 100 mls @ 55 mls/hr IV ONETIME JT Stop: 07/12/20 19:30 Last Admin: 07/12/20 15:49 Dose: 55 mls/hr Documented by: LARISSA Penicillin G Potassium 2.5 (millunits/ Sodium Chloride) 100 mls @ 55 mls/hr IV Q4H [facility] Oxytocin/Lactated Ringer's (Pitocin In Lr 10 Units/1,000 Ml) 10 unit in 1,000 mls @ 500 mls/hr IV .CONTINUOUS JT Nalbuphine HCl (Nubain) 10 mg IVPUSH Q2H PRN PRN Reason: Pain Ondansetron HCl (Zofran) 4 mg IVPUSH Q4H PRN PRN Reason: Nausea/Vomiting Sodium Chloride (Saline Flush) 10 ml FLUSH ASDIRECTED PRN PRN Reason: Keep Vein Open Assessment/Plan Comment:: * Labs * Start PCN for GBS prophylaxis * Pain management per patient preference * Anticipate
--- NOTE | 2020-07-12 16:18 | PCM.DEL ---
L & D Note - General Info Date of Service: 07/12/20 - Delivery Note Labor: Spontaneous Delivery Outcome: Livebirth Delivery Method: Spontaneous Vaginal Delivery-Single Delivery Mode: Spontaneous Presentation: Left Occiput Anterior (ALBERTO) Nuchal Cord: None Anesthesia Type: None Amniotic Fluid Description: Clear Episiotomy Type: None Laceration: None Placenta: Intact, Spontaneous Cord: 3 Vessels Estimated Blood Loss: 100 Resuscitation Needed: Yes : Bulb Syringe, Stimulated, Warmed, [place] Used, Warmer Used Delivery Comments (Free Text/Narrative):: Patient found to be complete and began pushing. With maternal pushing effort head delivered from an ALBERTO presentation. No nuchal cord present. With gentle downward traction the shoulders and body delivered. placed on maternal abdomen. Cord clamped and cut. Cord blood obtained. Placenta allowed time to separate and expelled intact. Inspection of perineum with no lacerations - General Info Date of Service: 07/12/20 - Patient Data Weight - Most Recent: 106.141 kg - Problem List & Annotations (1) 39 weeks gestation of SNOMED Code(s): 18474127 Code(s): Z3A.39 - 39 WEEKS GESTATION OF Status: Acute Current Visit: Yes (2) GBS (group B Streptococcus carrier), +RV culture, currently SNOMED Code(s): 4363357521024, 991725581, 0952343266644 Code(s): O99.820 - STREPTOCOCCUS B CARRIER STATE COMPLICATING Status: Acute Current Visit: Yes (3) Normal labor SNOMED Code(s): 34178867 Code(s): O80 - ENCOUNTER FOR FULL-TERM UNCOMPLICATED DELIVERY; Z37.9 - OUTCOME OF DELIVERY, UNSPECIFIED Status: Acute Current Visit: No (4) Vaginal delivery SNOMED Code(s): 809532187 Code(s): O80 - ENCOUNTER FOR FULL-TERM UNCOMPLICATED DELIVERY Status: Acute Current Visit: No - Problem List Review Problem List Initiated/Reviewed/Updated: Yes - My Orders Last 24 Hours: My Active Orders 07/12/20 14:56 Non Stress Test [RC] PER UNIT ROUTINE Vital Signs [RC] PER UNIT ROUTINE Resuscitation Status Routine 07/12/20 14:57 Vaginal Exam [RC] PRN 07/12/20 15:07 Patient Status [ADT] Routine Activity as Tolerated [RC] PFP Communication Order [RC] ASDIRECTED Notify Provider [RC] PFP Notify Provider [RC] PRN Urinary Catheter Assessment [RC] ASDIRECTED Nalbuphine [Nubain] 10 mg IVPUSH Q2H PRN Ondansetron [Zofran] 4 mg IVPUSH Q4H PRN Sodium Chloride 0.9% [Saline Flush] 10 ml FLUSH ASDIRECTED PRN Electronic Heart Tones Ext w TOCO [WOMSER] Routine Electronic Heart Tones Internal [WOMSER] Per Unit Routine Peripheral IV Insertion Adult [OM.PC] Routine 07/12/20 15:08 Heart Tones [RC] ASDIRECTED Peripheral IV Care [RC] . DIRECTED Pump Management, Intrathecal [RC] ASDIRECTED 07/12/20 15:15 Lactated Ringers [Ringers, Lactated] 1,000 ml IV ASDIRECTED Oxytocin/Lactated Ringers [Pitocin in LR 10 Units/1,000 ML] 10 unit in 1,000 ml IV .CONTINUOUS 07/12/20 15:20 CORONAVIRUS COVID-19 HELDER [MOLEC] Stat 07/12/20 15:28 RAPID PLASMA REAGIN,RPR [CHEM] Routine 07/12/20 15:30 Penicillin G Potassium [Pfizerpen] 5 millunits Sodium Chloride 0.9% [Normal Saline] 100 ml IV ONETIME 07/12/20 Dinner Regular Diet [DIET] 07/12/20 19:30 Penicillin G Potassium [Pfizerpen] 2.5 millunits Sodium Chloride 0.9% [Normal Saline] 100 ml IV Q4H - Assessment Assessment:: PPD#0 - Plan Plan:: * Routine cares * Breast feeding * Discharge home in 2 days
[2020-07-12] MEDS ORDERED: Benzocaine/Menthol 20%-0.5% Spray 56 GM Canister TOP PRN (16:33)
[2020-07-12] MEDS ORDERED: Acetaminophen 325 MG Tab PO PRN (16:33)
[2020-07-12] MEDS ORDERED: Witch Hazel Medicated Pads 40/Jar TOP PRN (16:33)
[2020-07-12] MEDS ORDERED: Docusate Sodium 100 MG Cap PO PRN (16:33)
[2020-07-12] MEDS ORDERED: Penicillin G Potassium 2.5 MILLUNITS in Sodium Chloride 0.9% 100 ML IV SCH (19:30)
[2020-07-13] MEDS ORDERED: Citalopram 20 MG Tab PO SCH ×2 (09:00→21:00)
--- NOTE | 2020-07-13 09:02 | PCM.PNPP ---
- General Info Date of Service: 07/13/20 Functional Status: Reports: Pain Controlled, Tolerating Diet, Ambulating, Urinating - Review of Systems General: Reports: No Symptoms Pulmonary: Reports: No Symptoms Cardiovascular: Reports: No Symptoms Gastrointestinal: Reports: No Symptoms Genitourinary: Reports: No Symptoms Musculoskeletal: Reports: No Symptoms Neurological: Reports: No Symptoms - Patient Data Vital Signs - Most Recent: Last Vital Signs Temp 36.9 C 07/13/20 04:49 Pulse 79 07/13/20 04:49 Resp 12 07/13/20 04:49 BP 116/51 L 07/13/20 04:49 Pulse Ox 98 07/13/20 04:49 Weight - Most Recent: 106.141 kg I&O - Last 24 Hours: Intake & Output 07/12/20 07/13/20 07/13/20 22:59 06:59 14:59 Intake Total 1900 Balance 1900 Lab Results - Last 24 Hours: Laboratory Results - last 24 hr 07/12/20 07/12/20 07/12/20 Range/Units 15:20 15:28 15:28 WBC 12.03 H (3.98-10.04) K/mm3 RBC 4.43 (3.98-5.22) M/mm3 Hgb 12.4 (11.2-15.7) gm/dl Hct 38.8 (34.1-44.9) % MCV 87.6 (79.4-94.8) fl MCH 28.0 (25.6-32.2) pg MCHC 32.0 L (32.2-35.5) g/dl RDW Std Deviation 45.5 (36.4-46.3) fL Plt Count 183 (182-369) K/mm3 MPV 10.3 (9.4-12.3) fl Neut % (Auto) 72.4 H (34.0-71.1) % Lymph % (Auto) 20.4 (19.3-51.7) % [place] % (Auto) 6.5 (4.7-12.5) % Eos % (Auto) 0.4 L (0.7-5.8) Baso % (Auto) 0.1 (0.1-1.2) % Neut # (Auto) 8.70 H (1.56-6.13) K/mm3 Lymph # (Auto) 2.46 (1.18-3.74) K/mm3 [place] # (Auto) 0.78 H (0.24-0.36) K/mm3 Eos # (Auto) 0.05 (0.04-0.36) K/mm3 Baso # (Auto) 0.01 (0.01-0.08) K/mm3 RPR Non-reactive (NONREACTIVE) SARS-CoV-2 RNA (HELDER) Negative (NEGATIVE) Blood Type Gel Antibody Screen 07/12/20 Range/Units 15:28 WBC (3.98-10.04) K/mm3 RBC (3.98-5.22) M/mm3 Hgb (11.2-15.7) gm/dl Hct (34.1-44.9) % MCV (79.4-94.8) fl MCH (25.6-32.2) pg MCHC (32.2-35.5) g/dl RDW Std Deviation (36.4-46.3) fL Plt Count (182-369) K/mm3 MPV (9.4-12.3) fl Neut % (Auto) (34.0-71.1) % Lymph % (Auto) (19.3-51.7) % [place] % (Auto) (4.7-12.5) % Eos % (Auto) (0.7-5.8) Baso % (Auto) (0.1-1.2) % Neut # (Auto) (1.56-6.13) K/mm3 Lymph # (Auto) (1.18-3.74) K/mm3 [place] # (Auto) (0.24-0.36) K/mm3 Eos # (Auto) (0.04-0.36) K/mm3 Baso # (Auto) (0.01-0.08) K/mm3 RPR (NONREACTIVE) SARS-CoV-2 RNA (HELDER) (NEGATIVE) Blood Type A POSITIVE Gel Antibody Screen Negative Med Orders - Current: Current Medications Acetaminophen (Tylenol) 650 mg PO Q4H PRN PRN Reason: mild pain or fever Benzocaine/Menthol (Dermoplast Pain Relief [place]) 0 gm TOP ASDIRECTED PRN PRN Reason: Perineal Comfort Measure Citalopram Hydrobromide (Celexa) 20 mg PO DAILY COUNT INCLUDES THE [facility] Docusate Sodium (Colace) 100 mg PO BID PRN PRN Reason: Constipation Ibuprofen (Motrin) 600 mg PO Q6H PRN PRN Reason: Mild pain or fever Witch Pam (Tucks) 1 pad TOP ASDIRECTED PRN PRN Reason: Perineal Comfort Measure Last Admin: 07/12/20 18:04 Dose: 1 applic Documented by: Discontinued Medications Diphenhydramine HCl (Benadryl) 25 mg IVPUSH Q6H PRN PRN Reason: pruritis Ephedrine Sulfate (Ephedrine Sulfate) 5 mg IVPUSH ASDIRECTED PRN PRN Reason: Hypotension Fentanyl (Sublimaze) 100 mcg EPIDUR Q3H PRN PRN Reason: Pain Fentanyl/Bupivacaine HCl (Fentanyl/Bupivacaine/Ns 2 Mcg-0.125% 100 Ml) 100 ml EPIDUR ASDIRECTED PRN PRN Reason: Pain Lactated Ringer's (Ringers, Lactated) Confirm Administered Dose 1,000 mls @ as directed .ROUTE .[facility] ONE Stop: 07/12/20 15:05 Last Admin: 07/12/20 16:16 Dose: Not Given Documented by: Lactated Ringer's (Ringers, Lactated) 1,000 mls @ 100 mls/hr IV ASDIRECTED JT Last Admin: 07/12/20 15:39 Dose: 999 mls/hr Documented by: Penicillin G Potassium 5 (millunits/ Sodium Chloride) 100 mls @ 55 mls/hr IV ONETIME COUNT INCLUDES THE [facility] Stop: 07/12/20 19:30 Last Admin: 07/12/20 15:49 Dose: 55 mls/hr Documented by: Penicillin G Potassium 2.5 (millunits/ Sodium Chloride) 100 mls @ 55 mls/hr IV Q4H COUNT INCLUDES THE [facility] Oxytocin/Lactated Ringer's (Pitocin In Lr 10 Units/1,000 Ml) 10 unit in 1,000 mls @ 500 mls/hr IV .CONTINUOUS JT Last Admin: 07/12/20 16:05 Dose: 500 mls/hr Documented by: Nalbuphine HCl (Nubain) 10 mg IVPUSH Q2H PRN PRN Reason: Pain Ondansetron HCl (Zofran) 4 mg IVPUSH Q4H PRN PRN Reason: Nausea/Vomiting Sodium Chloride (Saline Flush) 10 ml FLUSH ASDIRECTED PRN PRN Reason: Keep Vein Open - Infant Interaction Disposition, : [place] in Room with Family Interaction: Holding Infant Infant Feeding: Breastfed Infant; Nursed Well Support Person: - Recovery Exam Fundal Tone: Firm Fundal Level: 1 Fingerbreadths Below Umbilicus Lochia Amount: Small Lochia Color: Rubra/Red Perineum Description: Intact, Minimal Bruising/Swelling Bladder Status: Voiding Urinary Elimination: Voided - Exam General: Alert, Oriented, Cooperative GI/Abdominal Exam: Soft, Non-Tender Extremities: Normal Inspection - Problem List & Annotations (1) 39 weeks gestation of SNOMED Code(s): 00080137 Code(s): Z3A.39 - 39 WEEKS GESTATION OF Status: Acute Current Visit: Yes (2) GBS (group B Streptococcus carrier), +RV culture, currently SNOMED Code(s): 6008336052026, 289057166, 0150581607933 Code(s): O99.820 - STREPTOCOCCUS B CARRIER STATE COMPLICATING Status: Acute Current Visit: Yes (3) Normal labor SNOMED Code(s): 61056269 Code(s): O80 - ENCOUNTER FOR FULL-TERM UNCOMPLICATED DELIVERY; Z37.9 - OUTCOME OF DELIVERY, UNSPECIFIED Status: Acute Current Visit: No (4) Vaginal delivery SNOMED Code(s): 557877714 Code(s): O80 - ENCOUNTER FOR FULL-TERM UNCOMPLICATED DELIVERY Status: Acute Current Visit: No - Problem List Review Problem List Initiated/Reviewed/Updated: Yes - My Orders Last 24 Hours: My Active Orders 07/12/20 14:56 Resuscitation Status Routine 07/12/20 16:33 Acetaminophen [TylenoL] 650 mg PO Q4H PRN Benzocaine/Menthol [Dermoplast Pain Relief [place]] See Dose Instructions TOP ASDIRECTED PRN Docusate Sodium [Colace] 100 mg PO BID PRN Ibuprofen [Motrin] 600 mg PO Q6H PRN witch Pam [Tucks] 1 pad TOP ASDIRECTED PRN Heat Therapy [OM.PC] PRN 07/12/20 16:33 Activity as Tolerated [RC] PER UNIT ROUTINE Up ad Melba [RC] ASDIRECTED Vital Signs [RC] 03,09,15,21 Assess Lochia [WOMSER] Per Unit Routine Assess Uterine Involution [WOMSER] Per Unit Routine Breast Pump [WOMSER] Per Unit Routine Ice Therapy [OM.PC] Per Unit Routine Perineal Care [OM.PC] Per Unit Routine Peripheral IV Discontinue [OM.PC] Routine Sitz Bath [OM.PC] Per Unit Routine 07/12/20 Dinner Regular Diet [DIET] 07/13/20 09:00 Citalopram [Celexa] 20 mg PO DAILY 07/13/20 16:33 Heat Therapy [OM.PC] PRN - Assessment Assessment:: PPD#1 - Plan Plan:: * Routine cares * Breast feeding * Discharge home tomorrow
[2020-07-13] MEDS: Ibuprofen 600 MG Tab PO PRN (09:06)
[2020-07-14] MEDS: Ibuprofen 600 MG Tab PO PRN (01:44)
--- NOTE | 2020-07-14 06:53 | PCM.DCSUM1 ---
Discharge Summary - Discharge Data Discharge Date: 07/14/20 Discharge Disposition: Home, Self-Care 01 Condition: Good - Referral to Home Health Primary Care Physician: Farzaneh Le MD - Discharge Diagnosis/Problem(s) (1) 39 weeks gestation of SNOMED Code(s): 83691511 ICD Code: Z3A.39 - 39 WEEKS GESTATION OF Status: Acute Current Visit: Yes (2) GBS (group B Streptococcus carrier), +RV culture, currently SNOMED Code(s): 3284318364449, 682913783, 5040932919075 ICD Code: O99.820 - STREPTOCOCCUS B CARRIER STATE COMPLICATING Status: Acute Current Visit: Yes (3) Normal labor SNOMED Code(s): 54244893 ICD Code: O80 - ENCOUNTER FOR FULL-TERM UNCOMPLICATED DELIVERY; Z37.9 - OUTCOME OF DELIVERY, UNSPECIFIED Status: Acute Current Visit: No (4) Vaginal delivery SNOMED Code(s): 481495397 ICD Code: O80 - ENCOUNTER FOR FULL-TERM UNCOMPLICATED DELIVERY Status: Acute Current Visit: No - Patient Summary/Data Complications: None Consults: None Recommended Follow-up Testing/Procedures: Follow up in 3 weeks for check Hospital Course: 34 y/o at 39 2/7 wks who presented in labor. Made rapid change and underwent an uncomplicated . See delivery note. did well and was discharged home on PPD#2 - Patient Instructions Diet: Regular Diet as Tolerated Activity: As Tolerated Activity, Other: Pelvic rest for 6 weeks Driving: May Drive Today Showering/Bathing: May Shower Showering/Bathing, Other: May Bathe Wound/Incision Care: Keep Operative Site/Wound Site Clean and Dry Notify Provider of: Fever, Increased Pain, Swelling and Redness, Drainage, Nausea and/or Vomiting - Discharge Plan *PRESCRIPTION DRUG MONITORING PROGRAM REVIEWED*: No *COPY OF PRESCRIPTION DRUG MONITORING REPORT IN PATIENT CANDACE: No Home Medications: Home Meds Vit 10/Iron/Folic/Dha [Vitafol-OB + DHA] 1 each PO DAILY 06/05/18 [History] Citalopram [Citalopram HBr] 20 mg PO DAILY 07/12/20 [History] Docusate Sodium [Colace] 100 mg PO BID PRN cap 07/13/20 [Rx] Ibuprofen [Motrin] 600 mg PO Q6H PRN tablet 07/13/20 [Rx] Referrals: Farzaneh Le MD [Primary Care Provider] - (3 weeks for check ) - Discharge Summary/Plan Comment DC Time >30 min.: No - Patient Data Vitals - Most Recent: Last Vital Signs Temp 36.7 C 07/13/20 21:57 Pulse 68 07/13/20 21:57 Resp 15 07/13/20 21:57 BP 116/51 L 07/13/20 21:57 Pulse Ox 97 07/13/20 21:57 Weight - Most Recent: 106.141 kg I&O - Last 24 hours: Intake & Output 07/13/20 07/13/20 07/14/20 14:59 22:59 06:59 Intake Total 120 Balance 120 Med Orders - Current: Current Medications Acetaminophen (Tylenol) 650 mg PO Q4H PRN PRN Reason: mild pain or fever Benzocaine/Menthol (Dermoplast Pain Relief [place]) 0 gm TOP ASDIRECTED PRN PRN Reason: Perineal Comfort Measure Citalopram Hydrobromide (Celexa) 20 mg PO BEDTIME JT Docusate Sodium (Colace) 100 mg PO BID PRN PRN Reason: Constipation Ibuprofen (Motrin) 600 mg PO Q6H PRN PRN Reason: Mild pain or fever Last Admin: 07/14/20 01:44 Dose: 600 mg Documented by: Andrea Orozco ([facility]) 1 pad TOP ASDIRECTED PRN PRN Reason: Perineal Comfort Measure Last Admin: 07/12/20 18:04 Dose: 1 applic Documented by: Discontinued Medications Citalopram Hydrobromide (Celexa) 20 mg PO DAILY JT Diphenhydramine HCl (Benadryl) 25 mg IVPUSH Q6H PRN PRN Reason: pruritis Ephedrine Sulfate (Ephedrine Sulfate) 5 mg IVPUSH ASDIRECTED PRN PRN Reason: Hypotension Fentanyl (Sublimaze) 100 mcg EPIDUR Q3H PRN PRN Reason: Pain Fentanyl/Bupivacaine HCl (Fentanyl/Bupivacaine/Ns 2 Mcg-0.125% 100 Ml) 100 ml EPIDUR ASDIRECTED PRN PRN Reason: Pain Lactated Ringer's (Ringers, Lactated) Confirm Administered Dose 1,000 mls @ as directed .ROUTE .STK-MED ONE Stop: 07/12/20 15:05 Last Admin: 07/12/20 16:16 Dose: Not Given Documented by: Lactated Ringer's (Ringers, Lactated) 1,000 mls @ 100 mls/hr IV ASDIRECTED JT Last Admin: 07/12/20 15:39 Dose: 999 mls/hr Documented by: Penicillin G Potassium 5 (millunits/ Sodium Chloride) 100 mls @ 55 mls/hr IV ONETIME JT Stop: 07/12/20 19:30 Last Admin: 07/12/20 15:49 Dose: 55 mls/hr Documented by: Penicillin G Potassium 2.5 (millunits/ Sodium Chloride) 100 mls @ 55 mls/hr IV Q4H JT Oxytocin/Lactated Ringer's (Pitocin In Lr 10 Units/1,000 Ml) 10 unit in 1,000 mls @ 500 mls/hr IV .CONTINUOUS JT Last Admin: 07/12/20 16:05 Dose: 500 mls/hr Documented by: Nalbuphine HCl (Nubain) 10 mg IVPUSH Q2H PRN PRN Reason: Pain Ondansetron HCl (Zofran) 4 mg IVPUSH Q4H PRN PRN Reason: Nausea/Vomiting Sodium Chloride (Saline Flush) 10 ml FLUSH ASDIRECTED PRN PRN Reason: Keep Vein Open
--- NOTE | 2020-07-14 06:53 | PCM.PNPP ---
- General Info Date of Service: 07/14/20 Functional Status: Reports: Pain Controlled, Tolerating Diet, Ambulating, Urinating - Review of Systems General: Reports: No Symptoms Pulmonary: Reports: No Symptoms Cardiovascular: Reports: No Symptoms Gastrointestinal: Reports: No Symptoms Genitourinary: Reports: No Symptoms Musculoskeletal: Reports: No Symptoms Neurological: Reports: No Symptoms - Patient Data Vital Signs - Most Recent: Last Vital Signs Temp 36.7 C 07/13/20 21:57 Pulse 68 07/13/20 21:57 Resp 15 07/13/20 21:57 BP 116/51 L 07/13/20 21:57 Pulse Ox 97 07/13/20 21:57 Weight - Most Recent: 106.141 kg I&O - Last 24 Hours: Intake & Output 07/13/20 07/13/20 07/14/20 14:59 22:59 06:59 Intake Total 120 Balance 120 Med Orders - Current: Current Medications Acetaminophen (Tylenol) 650 mg PO Q4H PRN PRN Reason: mild pain or fever Benzocaine/Menthol (Dermoplast Pain Relief [place]) 0 gm TOP ASDIRECTED PRN PRN Reason: Perineal Comfort Measure Citalopram Hydrobromide (Celexa) 20 mg PO BEDTIME JT Docusate Sodium (Colace) 100 mg PO BID PRN PRN Reason: Constipation Ibuprofen (Motrin) 600 mg PO Q6H PRN PRN Reason: Mild pain or fever Last Admin: 07/14/20 01:44 Dose: 600 mg [facility] TOP ASDIRECTED PRN PRN Reason: Perineal Comfort Measure Last Admin: 07/12/20 18:04 Dose: 1 applic Documented by: Discontinued Medications Citalopram Hydrobromide (Celexa) 20 mg PO DAILY JT Diphenhydramine HCl (Benadryl) 25 mg IVPUSH Q6H PRN PRN Reason: pruritis Ephedrine Sulfate (Ephedrine Sulfate) 5 mg IVPUSH ASDIRECTED PRN PRN Reason: Hypotension Fentanyl (Sublimaze) 100 mcg EPIDUR Q3H PRN PRN Reason: Pain Fentanyl/Bupivacaine HCl (Fentanyl/Bupivacaine/Ns 2 Mcg-0.125% 100 Ml) 100 ml EPIDUR ASDIRECTED PRN PRN Reason: Pain Lactated Ringer's (Ringers, Lactated) Confirm Administered Dose 1,000 mls @ as directed .ROUTE .STK-MED ONE Stop: 07/12/20 15:05 Last Admin: 07/12/20 16:16 Dose: Not Given Documented by: Lactated Ringer's (Ringers, Lactated) 1,000 mls @ 100 mls/hr IV ASDIRECTED JT Last Admin: 07/12/20 15:39 Dose: 999 mls/hr Documented by: Penicillin G Potassium 5 (millunits/ Sodium Chloride) 100 mls @ 55 mls/hr IV ONETIME JT Stop: 07/12/20 19:30 Last Admin: 07/12/20 15:49 Dose: 55 mls/hr Documented by: Penicillin G Potassium 2.5 (millunits/ Sodium Chloride) 100 mls @ 55 mls/hr IV Q4H JT Oxytocin/Lactated Ringer's (Pitocin In Lr 10 Units/1,000 Ml) 10 unit in 1,000 mls @ 500 mls/hr IV .CONTINUOUS JT Last Admin: 07/12/20 16:05 Dose: 500 mls/hr Documented by: Nalbuphine HCl (Nubain) 10 mg IVPUSH Q2H PRN PRN Reason: Pain Ondansetron HCl (Zofran) 4 mg IVPUSH Q4H PRN PRN Reason: Nausea/Vomiting Sodium Chloride (Saline Flush) 10 ml FLUSH ASDIRECTED PRN PRN Reason: Keep Vein Open - Interaction Infant Disposition, : Otto in Room with Family Infant Interaction: Holding Infant Feeding: Breastfed Infant; Nursed Well Support Person: - Recovery Exam Fundal Tone: Firm Fundal Level: 1 Fingerbreadths Below Umbilicus Fundal Placement: Midline Lochia Amount: Small Lochia Color: Rubra/Red Perineum Description: Intact, Minimal Bruising/Swelling Bladder Status: Voiding Urinary Elimination: Voided - Exam General: Alert, Oriented, Cooperative GI/Abdominal Exam: Soft, Non-Tender Extremities: Normal Inspection Skin: Warm, Dry, Intact - Problem List & Annotations (1) 39 weeks gestation of SNOMED Code(s): 51827890 Code(s): Z3A.39 - 39 WEEKS GESTATION OF Status: Acute Current Visit: Yes (2) GBS (group B Streptococcus carrier), +RV culture, currently SNOMED Code(s): 0277276263804, 071174605, 5865856521035 Code(s): O99.820 - STREPTOCOCCUS B CARRIER STATE COMPLICATING Status: Acute Current Visit: Yes (3) Normal labor SNOMED Code(s): 89593783 Code(s): O80 - ENCOUNTER FOR FULL-TERM UNCOMPLICATED DELIVERY; Z37.9 - OUTCOME OF DELIVERY, UNSPECIFIED Status: Acute Current Visit: No (4) Vaginal delivery SNOMED Code(s): 390508358 Code(s): O80 - ENCOUNTER FOR FULL-TERM UNCOMPLICATED DELIVERY Status: Acute Current Visit: No - Problem List Review Problem List Initiated/Reviewed/Updated: Yes - My Orders Last 24 Hours: My Active Orders 07/13/20 16:33 Heat Therapy [OM.PC] PRN 07/13/20 21:00 Citalopram [Celexa] 20 mg PO BEDTIME 07/14/20 06:53 Ready for Discharge [RC] PER UNIT ROUTINE - Assessment Assessment:: PPD#2 - Plan Plan:: * Routine cares * Breast feeding * Discharge home today
== END 2020-07-14 12:00 | disposition home or self-care (01) | DRG 560 ==
LOC: JD.OBCHECK 14:47 → JD.OB 14:51 → JD.OBCHECK 15:06 → JD.OB 15:07 → OBSVTOIN 16:04 → JD.OB 16:05
PROVIDERS: ADMIT Obstetrics & Gynecology; ATTEND Obstetrics & Gynecology
PROC: 10E0XZZ Delivery of Products of Conception, External Approach (ICD-10-PCS; principal; 2020-07-12)
DX: O99.824 Streptococcus B carrier state complicating childbirth (principal); Z37.0 Single live birth; O99.344 Other mental disorders complicating childbirth; F41.9 Anxiety disorder, unspecified; Z20.828 Contact with and (suspected) exposure to other viral communicable diseases; Z3A.39 39 weeks gestation of pregnancy
CPT/HCPCS: 36415; 59025; 59409; 85025; 86592; 86850; 86900; 86901; A9270-GY; J2540; J2590; J7120; U0002

== ENCOUNTER 2023-03-15 20:06 | Inpatient (IN) | payer OTHER ==
[2023-03-15] MEDS ORDERED: Nalbuphine 10 MG/0.5 ML Syringe IVPUSH PRN (21:09)
[2023-03-15] MEDS ORDERED: Lidocaine 1% 50 ML MDV INJECT PRN (21:09)
[2023-03-15] MEDS ORDERED: Oxytocin/Lactated Ringers 10 UNIT/1,000 ML BAG IV SCH (21:15)
[2023-03-15] MEDS ORDERED: Penicillin G Potassium 5,000,000 Unit Vial ONE (21:18)
[2023-03-15] MEDS ORDERED: Sodium Chloride 0.9% 100 ML ONE (21:19)
[2023-03-15] MEDS ORDERED: Penicillin G Potassium 5 MILLUNITS in Sodium Chloride 0.9% 100 ML IV SCH (21:30)
[2023-03-15 21:33] LABS: BASOPHILS ABSOLUTE AUTO 0.01 K/mm3 (0.01-0.08); BASOPHILS PERCENT AUTO 0.1 % (0.1-1.2); EOSINOPHILS ABSOLUTE AUTO 0.05 K/mm3 (0.04-0.36); EOSINOPHILS PERCENT AUTO 0.6 (0.7-5.8); HEMATOCRIT 37.6 % (34.1-44.9); HEMOGLOBIN 12.4 gm/dl (11.2-15.7); IMMATURE GRAN ABSOLUTE AUTO 0.03 K/mm3 (0.00-0.10); IMMATURE GRAN PERCENT AUTO 0.3 % (<=1.0); LYMPHOCYTES ABSOLUTE AUTO 2.72 K/mm3 (1.18-3.74); LYMPHOCYTES PERCENT AUTO 30.4 % (19.3-51.7); MEAN CORPUSCULAR HEMOGLOBIN 29.2 pg (25.6-32.2); MEAN CORPUSCULAR VOLUME 88.7 fl (79.4-94.8); MEAN PLATELET VOLUME 11.7 fl (9.4-12.3); MONOCYTES ABSOLUTE AUTO 0.82 K/mm3 (0.24-0.36); MONOCYTES PERCENT AUTO 9.2 % (4.7-12.5); NEUTROPHILS ABSOLUTE AUTO 5.31 K/mm3 (1.56-6.13); NEUTROPHILS PERCENT AUTO 59.4 % (34.0-71.1); PLATELET COUNT,PLT 130 K/mm3 (182-369); RED BLOOD CELL COUNT 4.24 M/mm3 (3.98-5.22); WHITE BLOOD CELL COUNT,WBC 8.94 K/mm3 (3.98-10.04)
[2023-03-15 21:52] LABS: ALANINE AMINOTRANSFERASE,ALT 29 U/L (14-59); ASPARTATE AMNIOTRANSFERASE,AST 27 U/L (15-37); CREATININE 0.7 mg/dL (0.55-1.02); ESTIMATED GFR 115 mL/min (>60)
[2023-03-15] MEDS: Lactated Ringers 1,000 ML IV SCH ×2 (22:04→22:09)
[2023-03-16] MEDS ORDERED: Docusate Sodium 100 MG Cap PO PRN (01:32)
[2023-03-16] MEDS ORDERED: Benzocaine/Menthol 20%-0.5% Spray 78 GM Cannister TOP PRN (01:32)
[2023-03-16] MEDS ORDERED: Ibuprofen 600 MG Tab PO PRN (01:32)
[2023-03-16] MEDS ORDERED: Acetaminophen 325 MG Tab PO PRN (01:32)
[2023-03-16] MEDS ORDERED: Witch Hazel Medicated Pads 40/Jar TOP PRN (01:32)
[2023-03-16] MEDS ORDERED: Misoprostol 100 MCG Tab BUCCAL ONE (01:33)
[2023-03-16] MEDS ORDERED: Penicillin G Potassium 2.5 MILLUNITS in Sodium Chloride 0.9% 100 ML IV SCH (02:00)
[2023-03-16] MEDS ORDERED: Misoprostol 200 MCG Tab BUCCAL ONE (02:00)
[2023-03-16] MEDS: Venlafaxine 75 MG Cap.ER PO SCH (16:01)
[2023-03-16] MEDS: buPROPion 150 MG Tab.ER PO SCH (16:01)
[2023-03-17] MEDS: buPROPion 150 MG Tab.ER PO SCH (09:19)
[2023-03-17] MEDS: Venlafaxine 75 MG Cap.ER PO SCH (09:19)
== END 2023-03-17 11:20 | disposition home or self-care (01) | DRG 807 ==
LOC: JD.OBCHECK 20:06 → JD.OB 21:09 → OBSVTOIN 23:42 → JD.OB 23:46
PROVIDERS: ADMIT Obstetrics & Gynecology; ATTEND Obstetrics & Gynecology
PROC: 10E0XZZ Delivery of Products of Conception, External Approach (ICD-10-PCS; principal; 2023-03-15)
DX: O42.02 Full-term premature rupture of membranes, onset of labor within 24 hours of rupture (principal); Z37.0 Single live birth; O99.824 Streptococcus B carrier state complicating childbirth; Z79.899 Other long term (current) drug therapy; Z98.890 Other specified postprocedural states; Z3A.38 38 weeks gestation of pregnancy
CPT/HCPCS: 36415; 59025; 59409; 82565; 84450; 84460; 85025; 86592; 86850; 86900; 86901; A9270-GY; J2540; J2590; J3490; J7120